=== PATIENT | female | born 1985 ===

== ENCOUNTER → 2022-12-03 13:10 | Outpatient (BNVA) | payer OTHER, SELFPAY | PROVIDERS: Visit Provider Physician Assistant Medical | DX: M25.562 Pain in left knee (principal) | CPT/HCPCS: 99203 ==

== ENCOUNTER 2022-12-07 | Outpatient (REF) | payer OTHER, SELFPAY ==
--- NOTE | ~2022-12-07 | CT_ITS ---
EXAMINATION: CT KNEE WITHOUT CONTRAST, LEFT CLINICAL INFORMATION: Pain. Crush injury. Evaluate for occult fracture. COMPARISON: None available. TECHNIQUE: Contiguous axial CT images of the left knee were obtained without contrast. Multiplanar reformats were provided and reviewed. This CT examination was performed using dose optimization techniques as appropriate, variously including the following: *Automated exposure control *Adjustment of mA and/or kV according to patient size (this includes techniques or standardized protocols for targeted exams where dose is matched to indication/reason for exam; i.e. extremities or head) *Use of iterative reconstruction technique. DOSE: 253 mGy-cm FINDINGS: No acute fracture or dislocation. Normal patellofemoral alignment. No significant joint space narrowing or marginal osteophytes. No concerning lytic or blastic osseous lesion. No evidence of avascular necrosis. No abnormal soft tissue mass or fluid collection. No significant joint effusion. The visualized muscles and tendons are grossly intact, however, evaluation is limited on CT examination. CT/CT knee LT wo IV con IMPRESSION: No acute fracture or dislocation.
== END 2022-12-07 00:01 | disposition home or self-care (01) ==
LOC: HO.XRAY
PROVIDERS: Visit Provider Physician Assistant Medical
DX: S87.02XD Crushing injury of left knee, subsequent encounter (principal)
CPT/HCPCS: 73700

== ENCOUNTER → 2022-12-07 13:33 | Outpatient (BNVA) | payer OTHER, SELFPAY | PROVIDERS: Visit Provider Physician Assistant Medical | DX: M25.562 Pain in left knee (principal) | CPT/HCPCS: 99214 ==

== ENCOUNTER → 2022-12-15 11:42 | Outpatient (BNVA) | payer OTHER, SELFPAY | PROVIDERS: Visit Provider Physician Assistant Medical | DX: M25.562 Pain in left knee (principal); M79.89 Other specified soft tissue disorders | CPT/HCPCS: 99213 ==

== ENCOUNTER → 2022-12-28 09:51 | Outpatient (BNVA) | payer OTHER, SELFPAY | PROVIDERS: PCP Internal Medicine Infectious Disease; Visit Provider Physician Assistant Medical | DX: S87.02XD Crushing injury of left knee, subsequent encounter (principal); S77.11XD Crushing injury of right thigh, subsequent encounter; X58.XXXD Exposure to other specified factors, subsequent encounter | CPT/HCPCS: 99213 ==

== ENCOUNTER 2023-01-04 10:00 | Outpatient (RCR) | payer OTHER, SELFPAY ==
--- NOTE | 2022-12-17 18:32 | MHC.PT.EP ---
[facility] [place] Office [place] Office [place] Office [address] Sandra Winn [address] [phone] F: [phone] F: [phone] F: [phone] F: [phone] Physical Therapy Plan of Care Date of Evaluation: 12/17/22 Date of Surgery: Diagnosis: LEFT thigh and knee crush injury Assessment: Patient is a 36 y.o. maltese speaking female who is referred to PT by KENDALL Pablo, with Dx of LEFT thigh and knee crush injury. Her CT scan of L knee was negative for fractures or other soft tissue injuries. Patient impairments include pain, swelling, bruising, limited ROM, weakness, antalgic gait. Patient current functional limitations are walking, bending, stair use (is going up/down on her buttocks), standing, unable to work. Patient will benefit from skilled PT to address aforementioned impairments and functional limitations to meet established goals. Frequency and Duration: The patient will be seen 2-3x/week for 4 weeks Short Term Goals: 2 weeks Patient demonstrates consistency and independence with HEP to self manage symptoms. Patient presents with increased L knee extension -10 degrees to improve ambulation with 1 crutch. 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 Patient presents with L knee flexion 90 degrees to improve sit to stand without difficulty. Treatment Plan: Modalities to reduce pain, spasms and effusion. Manual therapy to restore motion and function. Therapeutic exercise to improve strength and flexibility. Neuromuscular re-education for posture and balance. Therapeutic activities to return to functional activities of daily living. Electronically signed by: Harry Hairston, PT, DPT Please sign and return to therapist. Thank you for your referral.
--- NOTE | 2023-02-15 16:59 | MHC.PT.DC ---
[facility] [place] Office [place] Office [place] Office [address] Sandra Winn [address] [phone] F: [phone] F: [phone] F: [phone] F: [phone] Physical Therapy Discharge Report Diagnosis: LEFT thigh and knee crush injury Date of Surgery: DOI 12/02/22 Date of Evaluation: 12/17/22 Date of Discharge: 02/15/23 Treatments to Date: 5 Cancellations to Date: 2 No Shows to Date: 5 Discharge Status: Visit Non-compliance Discharge Summary: During her last PT visit she attended, Helen was ambulating with one crutch and she Reports awaiting MRI. Work Conn follow up in 2 wks per pt. She no showed to all remaining PT visits after that session. Therefore she is discharged from PT at this time for non compliance. Electronically signed by: Harry Hairston, PT, DPT Please sign and return to therapist. Thank you for your referral.
== END 2023-02-15 16:59 | disposition home or self-care (01) ==
LOC: HO.PT 10:00
PROVIDERS: PCP Internal Medicine Infectious Disease; Visit Provider Physician Assistant Medical
DX: S77.12XD Crushing injury of left thigh, subsequent encounter (principal)
CPT/HCPCS: 97014; 97110; 97116; 97140; 97161; 97530

== ENCOUNTER → 2023-01-18 10:50 | Outpatient (BNVA) | payer OTHER, SELFPAY | PROVIDERS: PCP Internal Medicine Infectious Disease; Visit Provider Physician Assistant Medical | DX: S77.12XD Crushing injury of left thigh, subsequent encounter (principal); S87.02XD Crushing injury of left knee, subsequent encounter; X58.XXXD Exposure to other specified factors, subsequent encounter | CPT/HCPCS: 99213 ==

== ENCOUNTER 2023-02-06 09:09 | Outpatient (REF) | payer OTHER, SELFPAY ==
--- NOTE | ~2023-02-06 | MR_ITS ---
EXAMINATION: MR KNEE WITHOUT CONTRAST, LEFT CLINICAL INFORMATION: Weakness pain COMPARISON: CT scan of the left knee December 2022 TECHNIQUE: MRI of the knee without contrast was performed using routine sequences on a high-field scanner. FINDINGS: MENISCI: Medial Meniscus: Intact Lateral Meniscus: Intact LIGAMENTS: Cruciate: Intact Collateral: Intact EXTENSOR MECHANISM: Intact ARTICULAR CARTILAGE/BONE: Patellofemoral Compartment: Normal Medial Compartment: Normal Lateral Compartment: Normal JOINT FLUID AND BURSAE: Normal MR/MR knee LT wo con IMPRESSION: Normal MRI of the left knee
== END 2023-02-06 09:10 | disposition home or self-care (01) ==
LOC: HO.MRI 09:09
PROVIDERS: PCP Internal Medicine Infectious Disease; Visit Provider Internal Medicine
DX: M25.562 Pain in left knee (principal); R53.1 Weakness
CPT/HCPCS: 73721

== ENCOUNTER → 2023-02-08 10:59 | Outpatient (BNVA) | payer OTHER, SELFPAY | PROVIDERS: PCP Internal Medicine Infectious Disease; Visit Provider Physician Assistant Medical | DX: S87.02XD Crushing injury of left knee, subsequent encounter (principal); S77.12XD Crushing injury of left thigh, subsequent encounter; W23.0XXD Caught, crushed, jammed, or pinched between moving objects, subsequent encounter | CPT/HCPCS: 99213 ==

== ENCOUNTER → 2023-02-11 10:46 | Outpatient (BNVA) | payer OTHER, SELFPAY | PROVIDERS: PCP Internal Medicine Infectious Disease; Visit Provider Physician Assistant Medical | DX: S87.02XD Crushing injury of left knee, subsequent encounter (principal); S77.12XD Crushing injury of left thigh, subsequent encounter; X58.XXXD Exposure to other specified factors, subsequent encounter | CPT/HCPCS: 99214 ==

== ENCOUNTER 2023-02-19 07:53 | Outpatient (REF) | payer OTHER, SELFPAY ==
--- NOTE | ~2023-02-19 | XR_ITS ---
EXAMINATION: TWO-VIEW LEFT KNEE X-RAY. STANDING FRONTAL X-RAYS OF BILATERAL KNEES CLINICAL INFORMATION: Left knee pain. COMPARISON: CT scan of left knee on 12/07/2022. TECHNIQUE: Frontal and sunrise view X-rays of left knee, frontal standing x-rays of bilateral knees FINDINGS: BONES: Bony structures are intact. There is no focal bone destruction or periosteal reaction seen. JOINTS: Alignment of joints is normal. SOFT TISSUE: Soft tissue is normal. No radiopaque foreign body or abnormal air collection is seen. XR/XR knee standing BI IMPRESSION: 1. Normal x-rays of left knee. Normal frontal x-rays of bilateral knees. 2. No fracture or dislocation or signs of osteomyelitis are found.
--- NOTE | ~2023-02-19 | XR_ITS ---
EXAMINATION: TWO-VIEW LEFT KNEE X-RAY. STANDING FRONTAL X-RAYS OF BILATERAL KNEES CLINICAL INFORMATION: Left knee pain. COMPARISON: CT scan of left knee on 12/07/2022. TECHNIQUE: Frontal and sunrise view X-rays of left knee, frontal standing x-rays of bilateral knees FINDINGS: BONES: Bony structures are intact. There is no focal bone destruction or periosteal reaction seen. JOINTS: Alignment of joints is normal. SOFT TISSUE: Soft tissue is normal. No radiopaque foreign body or abnormal air collection is seen. XR/XR knee LT 2V IMPRESSION: 1. Normal x-rays of left knee. Normal frontal x-rays of bilateral knees. 2. No fracture or dislocation or signs of osteomyelitis are found.
== END 2023-02-19 07:54 | disposition home or self-care (01) ==
LOC: HO.HOSX 07:53
PROVIDERS: Visit Provider Physician Assistant
DX: S80.02XA Contusion of left knee, initial encounter (principal); T78.40XA Allergy, unspecified, initial encounter; M25.561 Pain in right knee
CPT/HCPCS: 73560; 73565; 99202; 99212

== ENCOUNTER 2023-02-19 09:13 | Outpatient (AMB) | payer OTHER, SELFPAY ==
--- NOTE | 2023-02-19 09:16 | A.OFFVIS_ITS ---
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 Patient reports that she was cleaning 10 the rolls of a machine at work when her knee was smashed between 2 rolls. Currently her pain is at the medial aspect of knee that increases with bending and weight bearing. She has completed 10 sessions of PT with good relief. 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 She states her knee became caught between two rollers. 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 She states sitting for 8 hrs causes her knee to become stiff. . She also reports she feels like her knee will give out with ambulation or applying pressure. She had undergone 10 physical therapy sessions in the past with mild relief. 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 Review of Systems Const All systems reviewed & are unremarkable except as noted in HPI and below Physical Exam Vital Signs: BMI result Body Mass Index 28.3 Const General: cooperative, healthy appearing, comfortable, no acute distress, well developed and alert Orientation/consciousness: patient oriented x3 HEENT Head: Yes normal to inspection, Yes normocephalic and Yes atraumatic Eyes General: appearance normal, both eyes and all related structures Resp Effort & Inspection: normal respiratory effort and able to speak in complete sentences Cardio Rate: regular rate Peripheral pulses: Peripheral pulses 2+ throughout GI Palpation (GI): Soft to palpation Skin Lesions: no lesions Rashes: no rashes Neuro General: patient oriented x3 Extrem Other: Left knee: Normal to inspection. No swelling. No joint effusion. She does have a bruise along the medial aspect of patella. Full ROM without ligamentous laxity. No joint line tenderness. NVI. Results Reviewed Results Reviewed: Xrays were obtained in the office today and personally reviewed by me of the left knee are negative for acute or chronic abnormalities. Assessment & Plan Assessment & Plan (1) Contusion of left knee: Code(s): S80.02XA - Contusion of left knee, initial encounter (2) Hypersensitivity: Code(s): T78.40XA - Allergy, unspecified, initial encounter Plan She has already worked with physical therapy and felt some improvement however she continues to have limitations due to the pain. I did refer her to pain management for further evaluation and to determine if she is a candidate for a geniculate injection. She will see me back once she has had an appointment with pain management for a follow-up. She will continue current work restrictions however she should be allowed to walk every half hour so she does not develop a stiff knee. Orders: Orders XR knee LT 2V Today M25.562 - Pain in left knee XR knee standing BI Today M25.561 - Pain in right knee, M25.562 - Pain in left knee Referrals Pain Management Referral S80.02XA - Contusion of left knee, initial encounter, T78.40XA - Allergy, unspecified, initial encounter Patient Instructions: Scribed for Sujata Chance PA-C, by Michael Rankin medical insurance claims specialist, on 02/19/2023 at 9:00 AM EST. ISujata PA-C, have personally reviewed and agree with the information entered by the scribe. Coding Level of Care Code New Pt Level 3 (92358) Diagnoses Contusion of left knee S80.02XA Hypersensitivity T78.40XA
[2023-02-19 09:22] VITALS: BMI 28.3
== END 2023-02-19 09:54 | disposition home or self-care (01) ==
PROVIDERS: PCP Internal Medicine Infectious Disease; Visit Provider Physician Assistant
DX: S80.02XA Contusion of left knee, initial encounter (principal); T78.40XA Allergy, unspecified, initial encounter
CPT/HCPCS: 99203

== ENCOUNTER 2023-04-05 12:40 | Outpatient (AMB) | payer OTHER, SELFPAY ==
--- NOTE | 2023-04-05 12:47 | A.OFFVIS_ITS ---
Intake Vital Signs 04/05/23 12:55 Height 5 ft 3 in Weight 160 lb BMI 28.3 Intake Visit Reasons: OV- left knee compression injury Intake Note: Helen 37 yr old female presents today for her WC left knee contusion from DOI 12/02/22. States she is pending approval from her W/C to be seen with pain management and has been out of work since 03/24/23 due to pain and not being cleared to return to work. Allergies No Known Allergies Allergy (Verified 04/05/23 12:55) HPI OV- left knee compression injury HPI Details 37-year-old female who returns to the [facility] today with an interpreter for the deaf for a follow-up of left knee compression injury, 12/02/22. She is pending approval from her to be seen with pain management. She has been out of work since 03/24/23 due to the pain. She has not been working with physical therapy as she has been discharged. She continues to have pain along the medial aspect of the leg. 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 Review of Systems Const All systems reviewed & are unremarkable except as noted in HPI and below Physical Exam Vital Signs: BMI result Body Mass Index 28.3 Const General: cooperative, healthy appearing, comfortable, no acute distress, well developed and alert Orientation/consciousness: patient oriented x3 HEENT Head: Yes normal to inspection, Yes normocephalic and Yes atraumatic Eyes General: appearance normal, both eyes and all related structures Resp Effort & Inspection: normal respiratory effort and able to speak in complete sentences Cardio Rate: regular rate Peripheral pulses: Peripheral pulses 2+ throughout GI Palpation (GI): Soft to palpation Skin Lesions: no lesions Rashes: no rashes Neuro General: patient oriented x3 Extrem Other: Left knee: Normal to inspection. No swelling. No joint effusion. Diffuse pain along the medial aspect of the knee with hypersensitivty to touch. Full ROM without ligamentous laxity. No joint line tenderness. NVI. Assessment & Plan Assessment & Plan (1) Contusion of left knee: Code(s): S80.02XA - Contusion of left knee, initial encounter Qualifiers: Encounter type: subsequent encounter Qualified Code(s): S80.02XD - Contusion of left knee, subsequent encounter (2) Hypersensitivity: Code(s): T78.40XA - Allergy, unspecified, initial encounter Qualifiers: Encounter type: initial encounter Qualified Code(s): T78.40XA - Allergy, unspecified, initial encounter Plan I did give the patient her the contact information to contact WC to speak with them regarding pain management referral. At this time, I am unable to return her to work if she does not have appropriate treatment as mentioned in the last visit. She will see pain management for evaluation and treatment plan since she has some chronic pain from the injury which is limiting her function and it is not safe for her to return to work this time. Once she is seen by pain management, she will see me back about 4-6 weeks after for evaluation. Patient Instructions: Scribed for Sujata Chance PA-C, by Michael Rankin medical services assistant, on 04/05/2023 at 12:45 PM EST. Sujata Smith PA-C, have personally reviewed and agree with the information entered by the scribe. Coding Level of Care Code Est Pt Level 3 (70675) Diagnoses Contusion of left knee, subsequent encounter S80.02XD Encounter type: subsequent encounter Hypersensitivity, initial encounter T78.40XA Encounter type: initial encounter
[2023-04-05 12:55] VITALS: BMI 28.3
== END 2023-04-05 13:36 | disposition home or self-care (01) ==
PROVIDERS: PCP Internal Medicine Infectious Disease; Visit Provider Physician Assistant
DX: S80.02XD Contusion of left knee, subsequent encounter (principal)
CPT/HCPCS: 99213

== ENCOUNTER → 2023-04-05 12:40 | Outpatient (BNVA) | payer OTHER, SELFPAY | PROVIDERS: PCP Internal Medicine Infectious Disease; Visit Provider Physician Assistant | DX: S80.02XD Contusion of left knee, subsequent encounter (principal); T78.40XA Allergy, unspecified, initial encounter | CPT/HCPCS: 99212 ==

== ENCOUNTER 2023-07-12 12:27 | Outpatient (AMB) | payer OTHER, SELFPAY ==
--- NOTE | 2023-07-12 12:53 | A.OFFVIS_ITS ---
Vital Signs 07/12/23 13:05 Height 5 ft 3 in Weight 162 lb 2 oz BMI 28.7 BP 122/68 Blood Pressure Location Lt brachial Position Sitting Respiration 16 Pulse 98 Pulse Source Pulse Oximeter Pulse Oximetry (%) 96 Oxygen Delivery Method Room Air Intake Visit Reasons: Left knee Intake Note: Patient comes in for initial visit was referred by [facility] orthopedic. Reports pain 09/14. Allergies No Known Allergies Allergy (Verified 07/12/23 13:03) HPI Comments Details: Marilee is very pleasant 37 years old mostly Lithuanian-speaking female who presents in my office with complains on pain on medial surface of the left knee. She reported that this pain started in November of the last year. 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 She is WC patient. She reports that her pain is most severe when she is bending her leg 0 and when she is putting pressure on her foot. However laying down makes her pain slightly better but still she has a pain in the leg at night which prevents her from good night's sleep. The cold applications at physical therapy and 10s unit applications were making her pain better. She tried gabapentin twice a week and it helps her to sleep however she was told not to take it every day. She is also taking Naprosyn when her pain is very severe. She went for physical therapy after trauma and physical therapy helped your pain little bit. She never had any injections. She had x-ray and MRI of the left knee and those images are completely normal. She does not have any past medical history, her past surgical history significant for cervical cancer and . Social history she is currently on workmen's comp compensation, she denies smoking cigarettes drinking alcohol or using any recreational drugs she denies caffeinated beverages. 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 Review of Systems Const Denies chills and Denies fever(s) Eyes Denies blurry vision, Denies exophthalmos and Denies diplopia ENT Reports Normal hearing present, Denies vertigo and Denies dizziness Card Denies chest pain, Denies chest pain at rest, Denies chest pain with activity, Denies syncope, Denies rapid heart rate, Denies pedal edema and Denies edema Resp Denies chest congestion, Denies cough, Denies hemoptysis, Denies excessive phlegm production, Denies pain on inspiration and Denies pain with cough GI Denies abdominal pain, Denies belching, Denies melena and Denies bloating Denies urinary incontinence Musc Denies as per HPI, Denies back pain and Denies tingling Neuro Reports Normal hearing present, Denies Abnormal speech present, Denies confusion, Denies vertigo, Denies dizziness, Denies syncope, Denies lack of coordination, Denies Sensory deficit (Neuro) and Denies tingling Psych Denies no additional complaints, Denies confusion and Denies depression Physical Exam Vital Signs: Last Vital Signs Pulse 98 07/12/23 13:05 Resp 16 07/12/23 13:05 BP 122/68 07/12/23 13:05 Pulse Ox 96 07/12/23 13:05 Oxygen Delivery Method Room Air 07/12/23 13:05 BMI result Body Mass Index 28.7 Const General: No confusion Orientation/consciousness: No confusion HEENT Head: Yes normal to inspection, Yes normocephalic and Yes atraumatic Resp Effort & Inspection: normal respiratory effort, able to speak in complete sentences, normal respiratory pattern, no audible wheezes and no cough Cardio Jugular venous distension: no JVD GI Inspection: Yes normal to inspection Skin Lesions: no lesions Rashes: no rashes Neuro General: No confusion Cranial nerves: Yes Normal hearing present Speech: No Abnormal speech present Sensory Exam: No Sensory deficit (Neuro) Extrem Other: Left knee: On the inspection the left thigh above the knee is slightly smaller compared to the right knee. The pinkish minimal discoloration is detected at the level of the knee. Range of motion is limited due to pain. Passive range of motion although painful seem to be preserved. Allodynia and hyperesthesia on the medial surface of the left knee. Assessment & Plan Assessment & Plan (1) Complex regional pain syndrome i of left lower limb: Code(s): G90.522 - Complex regional pain syndrome I of left lower limb Category: Medical Plan I will start this patient on gabapentin 300 mg q.h.s.. I recommended her to start low impact aerobic exercise preferably swimming. I also recommended her to acquire [id number] lidocaine patch and were 12 hours off 12 hours on. I also recommended her to take Naprosyn only when it is absolutely 100% necessary. I will send her for physical therapy again the last 1 was almost 9 months ago. I explained to her nature of the home exercise program associated with physical therapy. I also will schedule her for genicular nerve block to facilitate participation in physical therapy. This will be a therapeutic genicular nerve block. Possibility to treat this patient with sympathetic blockade was briefly discussed with the patient. Orders: Orders PT Evaluation and Treatment Today G90.522 - Complex regional pain syndrome I of left lower limb Medications: New gabapentin Take at night every night, not PRN! 300 mg PO BEDTIME 30 caps 6RF 30 days Discontinued gabapentin after 2-3 days, can increase to 2 tablets before bedtime if needed. Take 8-10 hours before driving/safety sensitive duties Discontinued Reason: Doctor's Order 100 mg PO BEDTIME 30 caps 0RF gabapentin Can take 2nd tablet at night if needed, for total of 200 mg Discontinued Reason: Doctor's Order 100 mg PO BID 60 caps 0RF Patient Instructions: I here by testify that I spent 45 minutes in conversation with this patient as well as evaluating her prior records, prior diagnostic studies, and organizing this note. The embosser apprentice from [employer] [id number] was facilitating today this conversation. Coding Level of Care Code New Pt Level 4 (22724) Diagnoses Complex regional pain syndrome i of left lower limb G90.522
[2023-07-12 13:05] VITALS: BP 122/68; PULSE 98; RESP 16; O2SAT 96; BMI 28.7
== END 2023-07-12 13:34 | disposition home or self-care (01) ==
PROVIDERS: PCP Internal Medicine Infectious Disease; Visit Provider Anesthesiology
DX: G90.522 Complex regional pain syndrome I of left lower limb (principal)
CPT/HCPCS: 99204

== ENCOUNTER → 2023-07-12 12:27 | Outpatient (BNVA) | payer OTHER, SELFPAY | PROVIDERS: PCP Internal Medicine Infectious Disease; Visit Provider Anesthesiology | DX: G90.522 Complex regional pain syndrome I of left lower limb (principal) | CPT/HCPCS: 99202 ==

== ENCOUNTER 2023-08-17 06:05 | Outpatient (REF) | payer OTHER, SELFPAY ==
--- NOTE | ~2023-08-17 | FL_ITS ---
EXAMINATION: XR FLUOROSCOPY WITH IMAGES CLINICAL INFORMATION: Regional pain syndrome left lower limb. COMPARISON: None available. TECHNIQUE: Fluoroscopy Supervised By: Dr. Son yAala. Fluoroscopy Time: 0.1 minute. Cumulative Dose: 0.436 mGy. DAP: 0.28811 Gycm2. Images: 2. FINDINGS: Intraoperative fluoroscopy and spot films were performed during a procedure in the OR. 2 needles are seen overlying the left and right lateral metaphyseal regions of the femur with a single medial needle overlying the mid tibial metaphysis. Please correlate with Dr. Son Ayala's report for complete details. FL/FL guidance in treatment room IMPRESSION: Intraoperative fluoroscopy and spot films were obtained. Please see Dr. Son Ayala's report for complete details.
== END 2023-08-17 06:06 | disposition home or self-care (01) ==
LOC: CF 06:05
PROVIDERS: Visit Provider Anesthesiology
DX: G90.522 Complex regional pain syndrome I of left lower limb (principal); S80.02XD Contusion of left knee, subsequent encounter; T78.40XD Allergy, unspecified, subsequent encounter
CPT/HCPCS: 64454; J2795; J3301

== ENCOUNTER 2023-08-17 07:38 | Outpatient (AMB) | payer OTHER, SELFPAY ==
--- OUTSIDE RECORDS SUMMARY | 2023-08-17 07:40 | XMS_ITS | Continuity of Care Document ---
Author Organization [facility] Address [address] [place] [address]- Care Team Providers Care Supervisor Fertilizer Name Role Phone João Villaseñor MD Primary Care Physician Encounter [facility] Date(s): 02/15/20 - 03/20/20 [facility]/[address] [address]- Attending Physician: João Villaseñor MD Admitting Physician: João Villaseñor MD Allergies, Adverse Reactions, Alerts Substance Reaction Severity Status NKA Active Immunizations Given and Recorded Vaccine Date Status Refusal Reason influenza virus vaccine, inactivated 12/26/18 Give n Medications Biktarvy oral tablet 1 tablet, By Mouth, Daily, # 30 tablet, 5 Refills, Maintenance, 07/18/19 9:34:00 EDT, Tablet, [facility], Raltegravir and Truvada are being stopped, 1 tablet By Mouth Daily,x30 days, 158, cm, 04/04/19 15:24:00 EST, Height, 62.4, kg... Start Date: 07/18/19 Stop Date: 01/14/20 Status: Ordered Problem List Condition Effective Dates Status Health Status Inform ant Acute asthma(Confirmed) 1 Active History of pelvic inflammato ry disease (PID) 2018(Confirmed) Active Anxiety and depression(Confirmed) 2 Active Bipolar disorder(Confirmed) Active Overweight(Confirmed) Active History of DARIUSZ III, status p ost LEEP. 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 Social History Social History Type Response Smoking Status Never (less than 100 in lifetime) entered on: 04/04/19 Sex
--- OUTSIDE RECORDS SUMMARY | 2023-08-17 07:40 | XMS_ITS | Continuity of Care Document ---
Author Organization [facility] Address [address] [place] [address]- Care Team Providers Care Corporate Development Analyst Name Role Phone João Villaseñor MD Primary Care Physician [place] [facility] [place] - 08/29/22 [facility]/[place] [address]- [place] Allergies, Adverse Reactions, Alerts No Known Allergies Immunizations Given and Recorded Vaccine Date Status Refusal Reason SARS-CoV-2 (COVID-19) mRNA-1273 vaccine 02/01/21 R ecorded SARS-CoV-2 (COVID-19) mRNA-1273 vaccine 01/04/21 R ecorded influenza virus vaccine, inactivated 01/29/21 Give n influenza virus vaccine, inactivated 12/26/18 Give n Hepatitis A Adult Vaccine 06/18/20 Given Measles/Mumps/Rubella Virus Vaccine 07/20/18 Recor ded Medications diclofenac sodium 50 mg oral delayed release tablet 1 tablet = 50 mg, By Mouth, 2 times a day, PRN Pain , Moderate, with food, # 60 tablet, 1 Refills, Maintenance, 12/01/21 15:35:00 EDT, EC Tablet, [facility], Partial fill upon patient request if the prescription is for a schedule I... Start Date: 12/01/21 Status: Ordered HAND BRACE FOR CARPAL TUNNEL (R SIDE) HAND BRACE FOR CARPAL TUNNEL (R SIDE), See Instructions, # 1 each, Refills 0, Tot. Refills 0, Maintenance, DX: R CARPAL TUNNEL (G56.01) USE DIRECTED VIVIENNE: 99, 12/01/21 15:34:00 EDT, Compound Start Date: 12/01/21 Status: Ordered Odefsey oral tablet 1 tablet, By Mouth, Daily, # 30 tablet, 5 Refills, Maintenance, 04/22/22 20:05:00 EST, Tablet, [facility] - [place] is being stopped., 1 tablet By Mouth Daily, 158, cm, 12/01/21 15:02:00 EDT, Height Start Date: 04/22/22 Status: Ordered Problem List Condition Confirmation Course Effective Dates Status Health St atus Informant Bipolar disorder Confirmed Active Overweight Confirmed Active h/o DARIUSZ III Confirmed Active HIV infection Confirmed Active Non-Yi speaking patient, learning design specialist required Confirmed Active Social History Social History Type Response Smoking Status Never (less than 100 in lifetime) entered on: 06/10/21 Sex Patient Care team information Care Team Personnel Name: João Villaseñor MD Position: [facility] Physician - Primary Care Member Role: PCP Address: Address: [address] [place] [address]- Name: Yamini Guardado RN Position: S RN Member Role: Primary Care Nurse Name: Ana Burch RN Position: S RN Member Role: Primary Care Nurse Care Team Related Persons Name: SHANT BASHIR Address: home [address] [place] [address] Name: MARSHALL KAUFMAN Address: home [address] [place] [address]
--- OUTSIDE RECORDS SUMMARY | 2023-08-17 07:40 | XMS_ITS | Continuity of Care Document ---
Author Organization [facility] Address [address] [place] [address]- Care Team Providers Care Per Diem Physical Therapist Name Role Phone João Villaseñor MD Primary Care Physician Encounter [facility] [place] Date(s): 06/06/20 - 07/11/20 [facility]/[address] [address]- Attending Physician: João Villaseñor MD Admitting Physician: João Villaseñor MD Allergies, Adverse Reactions, Alerts Substance Reaction Severity Status NKA Active Immunizations Given and Recorded Vaccine Date Status Refusal Reason Hepatitis A Adult Vaccine 06/18/20 Given influenza virus vaccine, inactivated 12/26/18 Give n Medications Odefsey oral tablet 1 tablet, By Mouth, Daily, # 30 tablet, 5 Refills, Maintenance, 06/18/20 15:27:00 EDT, Tablet, [facility] [place], Biktarvy is being stopped., 1 tablet By Mouth Daily, 158, cm, 06/18/20 15:14:00 EDT, Height, 62.4, kg, 11/10/18 9:49:00 EDT,... Start Date: 06/18/20 Status: Ordered Problem List Condition Effective Dates Status Health Status Inform ant Acute asthma(Confirmed) 1 Active History of pelvic inflammato ry disease (PID) 2018(Confirmed) Active Anxiety and depression(Confirmed) 2 Active Bipolar disorder(Confirmed) Active Overweight(Confirmed) Active History of DARIUSZ III, status p ost LEEP. 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 Social History Social History Type Response Smoking Status Never (less than 100 in lifetime) entered on: 06/18/20 Sex
--- OUTSIDE RECORDS SUMMARY | 2023-08-17 07:40 | XMS_ITS | Continuity of Care Document ---
Author Organization [facility] Address [address] [place] [address]- Care Team Providers Care Medical Practice Administrator Name Role Phone João Villaseñor MD Primary Care Physician [place] [facility] [place] 02/06/19 - 04/21/19 [facility]/[address] [address]- [facility] Attending Physician: Van Quintanilla MD Allergies, Adverse Reactions, Alerts Substance Reaction Severity Status NKA Active Immunizations Given and Recorded Vaccine Date Status Refusal Reason influenza virus vaccine, inactivated 12/26/18 Give n Medications Bactrim DS 800 mg-160 mg oral tablet 1 tablet, By Mouth, Daily, for 30 days, # 30 tablet, 5 Refills, Acute 07/30/19 16:16:26 EDT, 01/31/19 16:16:26 EST, Tablet, 1 tablet By Mouth Daily,x30 days Start Date: 01/31/19 Stop Date: 07/30/19 Status: Ordered Biktarvy oral tablet 1 tablet, By Mouth, Daily, # 30 tablet, 5 Refills, Maintenance, 11/01/18 16:08:14 EDT, Tablet, Raltegravir and Truvada are being stopped, 1 tablet By Mouth Daily,x30 days Start Date: 11/01/18 Stop Date: 04/30/19 Status: Ordered gabapentin 100 mg oral capsule See Instructions, Take 1 capsule By Mouth in AM, 1 cap by3 PM and then 2 at bedtime, # 120 capsule,Refills 0, Tot. Refills 0, Maintenance, 03/21/19 15:25:00 EST, Instructions Replace Required Details, Route to Pharmacy Electronically, [facility]... Start Date: 03/21/19 Status: Ordered raNITIdine 150 mg oral tablet 1 tablet = 150 mg, By Mouth, 2 times a day, PRN Dyspepsia, # 60 tablet, 0 Refills, Maintenance, 11/10/18 10:04:36 EDT, Tablet Start Date: 11/10/18 Status: Ordered SEROquel 50 mg oral tablet 1 tablet = 50 mg, By Mouth, Daily at supper, # 60 tablet, 0 Refills, Maintenance, 01/31/19 16:17:31EST, Tablet Start Date: 01/31/19 Status: Ordered venlafaxine 75 mg oral capsule, extended release 75 mg, 1, capsule, By Mouth, Daily, # 30 capsule, Refills 5, Tot. Refills 5, Maintenance, 04/04/19 15:34:00 EST, Route to Pharmacy Electronically, [facility], dose increased, 158,cm, 04/04/19 15:24:00 EST, Height, 62.4, kg, ... Start Date: 04/04/19 Status: Ordered Problem List Condition Effective Dates Status Health Status Inform ant Acute asthma(Confirmed) 1 Active Acute pelvic inflammatory di sease (PID)(Confirmed) Active Anxiety and depression(Confirmed) 2 Active Bipolar disorder(Confirmed) Active History of varicella as a child(Confirmed) Active HIV disease(Confirmed) 2019 Active 1Pt reports she has her asthma Dx managed by PCP 2Pt reports at [facility] visit she is currently receiving mental health services. Social History Social History Type Response Smoking Status Never (less than 100 in lifetime) entered on: 04/04/19 Sex
--- OUTSIDE RECORDS SUMMARY | 2023-08-17 07:40 | XMS_ITS | Continuity of Care Document ---
Author Organization [facility] Address [address] [place] [address]- Care Team Providers Care Corncob Pipe Supervisor Name Role Phone Charleen ELLISON, João Martinez Primary Care Physician Encounter [facility] Date(s): 03/15/20 - 04/14/[address] [address]- Attending Physician: Pierce Vickers Admitting Physician: Pierce Vickers Referring Physician: AdmtrPeirce Allergies, Adverse Reactions, Alerts Substance Reaction Severity Status NKA Active Immunizations Given and Recorded Vaccine Date Status Refusal Reason influenza virus vaccine, inactivated 12/26/18 Give n Medications Biktarvy oral tablet 1 tablet, By Mouth, Daily, # 30 tablet, 5 Refills, Maintenance, 07/18/19 9:34:00 EDT, Tablet, [facility], Raltegravir and Truvada are being stopped, 1 [...] load as of Dec 2019(Confirmed) 2019 Active Non-[place] Islander speaking patient , trip motor operator 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 Social History Social History Type Response Smoking Status Never (less than 100 in lifetime) entered on: 04/04/19 Sex
--- OUTSIDE RECORDS SUMMARY | 2023-08-17 07:40 | XMS_ITS | Continuity of Care Document ---
Author Organization [facility] Address [address] [place] [address]- Care Team Providers Care Die Trouble Shooter Name Role Phone Charleen ELLISON, João Martinez Primary Care Physician Encounter [facility] [place] Date(s): 06/09/21 - 07/09/[address] [address]- Attending Physician: Pierce Vikcers Admitting Physician: Pierce Vickers Referring Physician: Pierce Vickers Allergies, Adverse Reactions, Alerts No Known Allergies Immunizations Given and Recorded Vaccine Date Status Refusal Reason SARS-CoV-2 (COVID-19) mRNA-1273 vaccine 02/01/21 R ecorded SARS-CoV-2 (COVID-19) mRNA-1273 vaccine 01/04/21 R ecorded influenza virus vaccine, inactivated 01/29/21 Give n influenza virus vaccine, inactivated 12/26/18 Give n Hepatitis A Adult Vaccine 06/18/20 Given Measles/Mumps/Rubella Virus Vaccine 07/20/18 Recor ded Medications Odefsey oral tablet 1 tablet, By Mouth, Daily, # 30 tablet, 5 Refills, Maintenance, 06/03/21 14:26:00 EDT, Tablet, [facility] [place], Qianavy is being stopped., 1 tablet By Mouth Daily, 158, cm, 05/05/21 8:25:00 EST, Height Start Date: 06/03/21 Status: Ordered Problem List Condition Effective Dates Status Health Status Inform ant Bipolar disorder(Confirmed) Active Overweight(Confirmed) Active h/o DARIUSZ III(Confirmed) Active HIV infection(Confirmed) Active Non-Micronesian speaking patient , 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
--- OUTSIDE RECORDS SUMMARY | 2023-08-17 07:40 | XMS_ITS | Continuity of Care Document ---
Author Organization [facility] Address [address] [place] [address]- Care Team Providers Care Insurance Marketing Specialist Name Role Phone João Villaseñor MD Primary Care Physician [place] [facility] [place]10/[place] - 04/20/19 [facility]/[address] [address]- [facility] Attending Physician: AdmPierce lei Admitting Physician: AdmtrPierce Referring Physician: Admtr, Ar8 Allergies, Adverse Reactions, Alerts Substance Reaction Severity [...] Replace Required Details, Route to Pharmacy Electronically, [facility]... Start Date: 03/21/19 Status: Ordered raNITIdine 150 [...] 04/04/19 15:34:00 EST, Route to Pharmacy Electronically, [facility] [place], dose increased, 158,cm, 04/04/19 15:24:00 EST, Height, [...]
--- OUTSIDE RECORDS SUMMARY | 2023-08-17 07:40 | XMS_ITS | Continuity of Care Document ---
Author Organization [facility] Address [address] [place] [address]- Care Team Providers Care Manager Solar Name Role Phone João Villaseñor MD Primary Care Physician Encounter [facility] Date(s): 08/08/21 - 09/07/[address] [address]- Attending Physician: Pierce Vickers Admitting Physician: Pierce Vickers Referring Physician: AdmtrPierce Allergies, Adverse Reactions, Alerts No Known Allergies [...] 5 Refills, Maintenance, 06/03/21 14:26:00 EDT, Tablet, [facility] [place], Qianavy is being stopped., 1 tablet By Mouth Daily, 158, cm, 05/05/21 8:25:00 EST, Height Start Date: 06/03/21 Status: Ordered Problem List Condition Effective Dates Status Health Status Inform ant Bipolar disorder(Confirmed) Active Overweight(Confirmed) Active h/o DARIUSZ III(Confirmed) Active HIV infection(Confirmed) Active Non-Turkmen 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
--- OUTSIDE RECORDS SUMMARY | 2023-08-17 07:40 | XMS_ITS | Continuity of Care Document ---
Author Organization [facility] Address [address] [place] [address]- Care Team Providers Care Air Export Operations Agent Name Role Phone João Villaseñor MD Primary Care Physician [place] [facility] [place] [id number] Date(s): 12/01/21 - 12/31/21 [facility] [address]- Attending Physician: Pierce Vickers Admitting Physician: AdmtrPierce Referring Physician: Admtr, Ar8 Allergies, Adverse Reactions, Alerts No Known Allergies [...] Refills, Maintenance, 12/01/21 15:35:00 EDT, EC Tablet, [facility], Partial fill upon patient request if the [...] 5 Refills, Maintenance, 06/03/21 14:26:00 EDT, Tablet, [facility] [place], Rasheedy is being stopped., 1 tablet By Mouth Daily, 158, cm, 05/05/21 8:25:00 EST, Height Start Date: 06/03/21 Status: Ordered Problem List Condition Confirmation Course Effective Dates Status Health St atus Informant Bipolar disorder Confirmed Active Overweight Confirmed Active h/o DARIUSZ III Confirmed Active HIV infection Confirmed Active Non-[place] Citizen speaking patient, dairy inspector 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
--- OUTSIDE RECORDS SUMMARY | 2023-08-17 07:40 | XMS_ITS | Continuity of Care Document ---
Author Organization [facility] Address [address] [place] [address]- Care Team Providers Care Cigar Maker Name Role Phone João Villaseñor MD Primary Care Physician [place] [facility] [place] 10/05/19 - 11/22/19 [facility]/[address] [address]- [facility] Attending Physician: João Villaseñor MD Admitting Physician: João Villaseñor MD Allergies, Adverse Reactions, Alerts Substance Reaction Severity Status NKA Active Immunizations Given and Recorded Vaccine Date Status Refusal Reason influenza virus vaccine, inactivated 12/26/18 Give n Medications Biktarvy oral tablet 1 tablet, By Mouth, Daily, # 30 tablet, 5 Refills, Maintenance, 07/18/19 9:34:00 EDT, Tablet, [facility] [place], Raltegravir and Truvada are being stopped, 1 tablet By Mouth Daily,x30 days, 158, cm, 04/04/19 15:24:00 EST, Height, 62.4, kg... Start Date: 07/18/19 Stop Date: 01/14/20 Status: Ordered gabapentin 100 mg oral capsule See Instructions, Take 1 capsule By Mouth in AM, 1 cap by3 PM and then 2 at bedtime, # 120 capsule,Refills 0, Tot. Refills 0, Maintenance, 03/21/19 15:25:00 EST, Instructions Replace Required Details, Route to Pharmacy Electronically, [facility]... Start Date: 03/21/19 Status: Ordered SEROquel 50 mg oral tablet 1 tablet = 50 mg, By Mouth, Daily at supper, # 60 tablet, 0 Refills, Maintenance, 01/31/19 16:17:31EST, Tablet Start Date: 01/31/19 Status: Ordered venlafaxine 75 mg oral capsule, extended release 75 mg, 1, capsule, By Mouth, Daily, # 30 capsule, Refills 5, Tot. Refills 5, Maintenance, 04/04/19 15:34:00 EST, Route to Pharmacy Electronically, [facility] [place], dose increased, 158,cm, 04/04/19 15:24:00 EST, Height, 62.4, kg, ... Start Date: 04/04/19 Status: Ordered Problem List Condition Effective Dates Status Health Status Inform ant Acute asthma(Confirmed) 1 Active Acute pelvic inflammatory di sease (PID)(Confirmed) Active Anxiety and depression(Confirmed) 2 Active Bipolar disorder(Confirmed) Active Obesity (BMI 30-39.9)(Confirmed) Active Exposure to COVID-19 virus(Confirmed) Active History [...]
--- OUTSIDE RECORDS SUMMARY | 2023-08-17 07:40 | XMS_ITS | Continuity of Care Document ---
Author Organization [facility] Address Unknown Care Team Providers Care Air Breaker Operator Name Role Phone João Villaseñor MD Primary Care Physician [place] [facility] [place] 06[place]10[place]21 - 07/10/21 [facility] Attending Physician: Pierce Vickers Admitting Physician: Pierce Vickers Referring Physician: Pierce [...] 5 Refills, Maintenance, 06/03/21 14:26:00 EDT, Tablet, [facility] [place], Qianavy is being stopped., 1 tablet By Mouth Daily, 158, cm, 05/05/21 8:25:00 EST, Height Start Date: 06/03/21 Status: Ordered Problem List Condition Effective Dates Status Health Status Inform ant Bipolar disorder(Confirmed) Active Overweight(Confirmed) Active h/o DARIUSZ III(Confirmed) Active HIV infection(Confirmed) Active Non-Eritrean speaking patient , smt technician 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
--- OUTSIDE RECORDS SUMMARY | 2023-08-17 07:40 | XMS_ITS | Continuity of Care Document ---
Author Organization [facility] Address [address] [place] [address]- Care Team Providers Care Astronomy Instructor Name Role Phone João Villaseñor MD Primary Care Physician En[place] [facility] [place] Date(s): 06/22/23 - 07/22/23 [facility] [address]- Allergies, Adverse Reactions, Alerts No Known Allergies [...] Refills, Maintenance, 12/01/21 15:35:00 EDT, EC Tablet, [facility], Partial fill upon patient request if [...] Daily, # 30 tablet, 5 Refills, Maintenance, 06/25/23 8:22:00 EDT, [facility], 30, TAKE 1 TABLET BY MOUTH EVERY DAY, 158, cm, 11/24/22 15:02:00 EDT, Height Start Date: 06/25/23 Status: Ordered venlafaxine 37.5 mg oral capsule, extended release 37.5 mg, 1, capsule, By Mouth, Daily, # 30 capsule, Refills 1, Tot. Refills 1, Maintenance, 11/24/22 15:54:00 EDT, Route to Pharmacy Electronically, [facility], Partial fill upon patient request if the prescription is for a schedul... 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 Active Social History Social History Type Response Smoking Status Never (less than 100 in lifetime) entered on: 06/10/21 Sex Patient Care team information Care Team Personnel Name: João Villaseñor MD Position: [facility] Physician - Primary Care Member Role: PCP Address: Address: [address] [place] [address]- Name: Yamini Guardado RN Position: S RN Member Role: Primary Care Nurse Name: Ana Burch RN Position: S RN Member Role: Primary Care Nurse Care Team Related Persons Name: SHANT BASHIR Address: home [address] [place] [address] Name: MARSHALL KAUFMAN Address: home [address] [place] [address]
--- OUTSIDE RECORDS SUMMARY | 2023-08-17 07:40 | XMS_ITS | Continuity of Care Document ---
Author Organization [facility] Address [address] [place] [address]- Care Team Providers Care Donations Attendant Name Role Phone Charleen ELLISON, João Martinez Primary Care Physician Encounter [facility] [place] Date(s): 08/19/20 - 09/18/20 [facility]/[address] [address]- Allergies, Adverse Reactions, Alerts Substance Reaction Severity Status NKA Active Immunizations Given and Recorded Vaccine Date Status Refusal Reason Hepatitis A Adult Vaccine 06/18/20 Given influenza virus vaccine, inactivated 12/26/18 Give n Medications Odefsey oral tablet 1 tablet, By Mouth, Daily, # 30 tablet, 5 Refills, Maintenance, 06/18/20 15:27:00 EDT, Tablet, [facility] [place], Rasheedy is being stopped., 1 tablet By Mouth Daily, 158, cm, 06/18/20 15:14:00 EDT, Height, 62.4, kg, 11/10/18 9:49:00 EDT,... Start Date: 06/18/20 Status: Ordered Problem List Condition Effective Dates Status Health Status Inform ant History of pelvic inflammato ry disease (PID) 2019(Confirmed) Active Bipolar disorder(Confirmed) Active Overweight(Confirmed) Active History of DARIUSZ III, status p ost LEEP. Last pap smear 11/06/19 negative, +HPV.(Confirmed) Active Exposure to COVID-19 virus(Confirmed) Active History of varicella as a child(Confirmed) Active HIV infection(Confirmed) Active Non-Emirati speaking patient , health and social care teacher 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
--- OUTSIDE RECORDS SUMMARY | 2023-08-17 07:40 | XMS_ITS | Continuity of Care Document ---
Author Organization [facility] Address [address] [place] [address]- Care Team Providers Care Auto Painter Helper Name Role Phone Charleen ELLISON, João Martinez Primary Care Physician Encounter [facility] [place] Date(s): 05/05/21 - 06/04/[address] [address] Allergies, Adverse Reactions, Alerts No Known Allergies [...] 5 Refills, Maintenance, 06/03/21 14:26:00 EDT, Tablet, [facility] [place], Rasheedy is being stopped., 1 tablet By Mouth Daily, 158, cm, 05/05/21 8:25:00 EST, Height Start Date: 06/03/21 Status: Ordered Problem List Condition Effective Dates Status Health Status Inform ant Bipolar disorder(Confirmed) Active Overweight(Confirmed) Active h/o DARIUSZ III(Confirmed) Active HIV infection(Confirmed) Active Non-Citizen Of [place] speaking patient , hearing care practitioner 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
--- OUTSIDE RECORDS SUMMARY | 2023-08-17 07:40 | XMS_ITS | Continuity of Care Document ---
Author Organization [facility] Address [address] [place] [address]- Care Team Providers Care C Developer Name Role Phone João Villaseñor MD Primary Care Physician Encounter [facility] [place] Date(s): 10/07/20 - 11/22/[address] [address] Attending Physician: João Villaseñor MD Admitting Physician: João Villaseñor MD Referring Physician: João Villaseñor MD Allergies, Adverse Reactions, Alerts Substance Reaction Severity Status NKA Active Immunizations Given and Recorded Vaccine Date Status Refusal Reason Hepatitis A Adult Vaccine 06/18/20 Given influenza virus vaccine, inactivated 12/26/18 Give n Measles/Mumps/Rubella Virus Vaccine 07/20/18 Recor ded Medications Odefsey oral tablet 1 tablet, By Mouth, Daily, # 30 tablet, 5 Refills, Maintenance, 06/18/20 15:27:00 EDT, Tablet, 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
--- OUTSIDE RECORDS SUMMARY | 2023-08-17 07:40 | XMS_ITS | Continuity of Care Document ---
Author Organization [facility] Address [address] [place] [address]- Care Team Providers Care Olive Grader Name Role Phone João Villaseñor MD Primary Care Physician Encounter [facility] [place] Date(s): 06/18/20 - 07/18/20 [facility]/[address] [address]- Attending Physician: Pierce Vickers Admitting Physician: Pierce Vickers Referring Physician: AdmtrPierce Allergies, Adverse Reactions, Alerts Substance Reaction Severity Status NKA Active Immunizations Given and Recorded Vaccine Date Status Refusal Reason Hepatitis A Adult Vaccine 06/18/20 Given influenza virus vaccine, inactivated 12/26/18 Give n Medications Odefsey oral tablet 1 tablet, By Mouth, Daily, # 30 tablet, 5 Refills, Maintenance, 06/18/20 15:27:00 EDT, Tablet, [facility] [place], Biktarvy is being stopped., 1 tablet By Mouth Daily, 158, cm, 06/18/20 15:14:00 EDT, Height, 62.4, kg, 11/10/18 9:49:00 EDT,... Start Date: 06/18/20 Status: Ordered Problem List Condition Effective Dates Status Health Status Inform ant Acute asthma(Confirmed) 1 Active History of pelvic inflammato ry disease (PID) 2019(Confirmed) Active Anxiety and depression(Confirmed) 2 Active Bipolar disorder(Confirmed) Active Overweight(Confirmed) Active History of DARIUSZ III, status p ost LEEP. 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 Social History Social History Type Response Smoking Status Never (less than 100 in lifetime) entered on: 06/18/20 Sex
--- OUTSIDE RECORDS SUMMARY | 2023-08-17 07:40 | XMS_ITS | Continuity of Care Document ---
Author Organization [facility] Address [address] [place] [address]- Care Team Providers Care Account Resolution Expert Name Role Phone João Villaseñor MD Primary Care Physician Encounter [facility] [place] Date(s): 09/09/21 - 11/06/21 [facility]/[place] [address]- Attending Physician: João Villaseñor MD Admitting Physician: João Villaseñor MD Allergies, Adverse Reactions, Alerts No Known Allergies [...] 5 Refills, Maintenance, 06/03/21 14:26:00 EDT, Tablet, [facility] [place], Biktarvy is being stopped., 1 tablet By Mouth Daily, 158, cm, 05/05/21 8:25:00 EST, Height Start Date: 06/03/21 Status: Ordered Problem List Condition Effective Dates Status Health Status Inform ant Bipolar disorder(Confirmed) Active Overweight(Confirmed) Active h/o DARIUSZ III(Confirmed) Active HIV infection(Confirmed) Active Non-Bolivian speaking patient , hourly sign language interpreter 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 Care Team Personnel Name: João Villaseñor MD Address: [address] [place] [address]
--- OUTSIDE RECORDS SUMMARY | 2023-08-17 07:40 | XMS_ITS | Continuity of Care Document ---
Author Organization [facility] Address [address] [place] [address]- Care Team Providers Care Tool Builder Name Role Phone João Villaseñor MD Primary Care Physician Encounter [facility] [place] Date(s): 03/31/22 - 04/30/22 [facility] [address]- [place] Allergies, Adverse Reactions, Alerts No Known [...] Refills, Maintenance, 12/01/21 15:35:00 EDT, EC Tablet, [facility], Partial fill upon patient request if [...] 5 Refills, Maintenance, 04/22/22 20:05:00 EST, Tablet, [facility] [place] is being stopped., 1 tablet By Mouth Daily, 158, cm, 12/01/21 15:02:00 EDT, Height Start Date: 04/22/22 Status: Ordered Problem List Condition Confirmation Course Effective Dates Status Health St [facility] Informant Bipolar disorder Confirmed Active Overweight Confirmed Active h/o DARIUSZ III Confirmed Active HIV infection Confirmed Active Non-Kazakh speaking patient, soup person required Confirmed Active Social History Social History Type Response Smoking Status Never (less than 100 in lifetime) entered on: 06/10/21 Sex Patient Care team information Care Team Personnel Name: João Villaseñor MD Position: [facility] Primary Care Physician Member Role: PCP Address: Address: [address] [place] [address]- Name: Yamini Guardado RN Position: S RN Member Role: Primary Care Nurse Name: Ana Burch RN Position: S RN Member Role: Primary Care Nurse Care Team Related Persons Name: SHANT BASHIR Address: home [address] [place] [address] Name: MARSHALL KAUFMAN Address: home [address] [place] [address]
--- OUTSIDE RECORDS SUMMARY | 2023-08-17 07:40 | XMS_ITS | Continuity of Care Document ---
Author Organization [facility] Address [address] [place] [address]- Care Team Providers Care Granite Sandblaster Apprentice Name Role Phone Charleen ELLISON, João Martinez Primary Care Physician Encounter [facility] Date(s): 09/18/19 - 10/18/[address] [address]- [facility] Allergies, Adverse Reactions, Alerts Substance Reaction Severity Status NKA Active Immunizations Given and Recorded Vaccine Date Status Refusal Reason influenza virus vaccine, inactivated 12/26/18 Give n Medications Biktarvy oral tablet 1 tablet, By Mouth, Daily, # 30 tablet, 5 Refills, Maintenance, 07/18/19 9:34:00 EDT, Tablet, [facility] [place], Raltegravir and Truvada are being stopped, 1 [...] Replace Required Details, Route to Pharmacy Electronically, [facility]... Start Date: 03/21/19 Status: Ordered [...] 04/04/19 15:34:00 EST, Route to Pharmacy Electronically, [facility] [place], dose increased, 158,cm, 04/04/19 15:24:00 EST, Height, [...]
--- OUTSIDE RECORDS SUMMARY | 2023-08-17 07:40 | XMS_ITS | Continuity of Care Document ---
Author Organization [facility] Address [address] [place] [address]- Care Team Providers Care Flagstone Layer Name Role Phone Charleen ELLISON, João Martinez Primary Care Physician [place] [id number] Date(s): 10/07/21 - 11/06/21 [facility] [address]- Attending Physician: Pierce Vickers Admitting Physician: AdmPierce lei Referring Physician: Admtr, Ar8 Allergies, Adverse Reactions, [...] 5 Refills, Maintenance, 06/03/21 14:26:00 EDT, Tablet, [facility] [place], Biktarvy is being stopped., 1 tablet By Mouth Daily, 158, cm, 05/05/21 8:25:00 EST, Height Start Date: 06/03/21 Status: Ordered Problem List Condition Effective Dates Status Health Status Inform ant Bipolar disorder(Confirmed) Active Overweight(Confirmed) Active h/o DARIUSZ III(Confirmed) Active HIV infection(Confirmed) Active Non-Papua New Guinean speaking patient , 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
--- OUTSIDE RECORDS SUMMARY | 2023-08-17 07:40 | XMS_ITS | Continuity of Care Document ---
Author Organization [facility] Address [address] [place] [address]- Care Team Providers Care Planisher Name Role Phone João Villaseñor MD Primary Care Physician [place] [facility] [place] [id number] Date(s): 12/29/22 - 01/28/23 [facility] [address]- Attending Physician: Pierce Vickers Admitting Physician: AdmtrPierce Referring Physician: Admtr, ArJohny Allergies, Adverse Reactions, Alerts No Known Allergies [...] Refills, Maintenance, 12/01/21 15:35:00 EDT, EC Tablet, [facility], Partial fill upon patient request if the [...] 5 Refills, Maintenance, 04/22/22 20:05:00 EST, Tablet, [facility], Biktarvy is being stopped., 1 tablet By Mouth Daily, 158, cm, 12/01/21 15:02:00 EDT, Height Start Date: 04/22/22 Status: Ordered venlafaxine 37.5 mg oral capsule, extended release 37.5 mg, 1, capsule, By Mouth, Daily, # 30 capsule, Refills 1, Tot. Refills 1, Maintenance, 11/24/22 15:54:00 EDT, Route to Pharmacy Electronically, [facility], Partial fill upon patient request if the prescription is for a schedul... 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 Physician - Primary Care Member Role: PCP Address: Address: [address] [place] [address]- Name: Yamini Guardado RN Position: S RN Member Role: Primary Care Nurse Name: Ana Burch RN Position: S RN Member Role: Primary Care Nurse Care Team Related Persons Name: SHANT BASHIR Address: home [address] [place] [address] Name: MARSHALL KAUFMAN Address: home [address] [place] [address]
--- OUTSIDE RECORDS SUMMARY | 2023-08-17 07:40 | XMS_ITS | Continuity of Care Document ---
Author Organization [facility] Address Unknown Care Team Providers Care Furniture Technician Name Role Phone João Villaseñor MD Primary Care Physician Encounter [facility] [place] ACCT R [id number] Date(s): 09/09/21 - 10/16/21 [facility] Attending Physician: João Villaseñor MD Admitting Physician: [...] 5 Refills, Maintenance, 06/03/21 14:26:00 EDT, Tablet, [facility] [place], Trudiarvy is being stopped., 1 tablet By Mouth Daily, 158, cm, 05/05/21 8:25:00 EST, Height Start Date: 06/03/21 Status: Ordered Problem List Condition Effective Dates Status Health Status Inform ant Bipolar disorder(Confirmed) Active Overweight(Confirmed) Active h/o DARIUSZ III(Confirmed) Active HIV infection(Confirmed) Active Non-Malian speaking patient , 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
--- OUTSIDE RECORDS SUMMARY | 2023-08-17 07:40 | XMS_ITS | Continuity of Care Document ---
Author Organization [facility] Address [address] [place] [address]- Care Team Providers Care Animal Services Officer Name Role Phone João Villaseñor MD Primary Care Physician [place] [facility] [place](s[place] 02/22/19 - 03/25/19 [facility] [place] [address]- [facility] Attending Physician: Raciel Olsen MD Admitting Physician: Raciel Olsen MD Allergies, Adverse Reactions, Alerts Substance Reaction [...] [facility]... Start Date: 03/21/19 Status: Ordered oxyCODONE 5 mg oral tablet 5 mg, 1, tablet, By Mouth, Every 6 hours, PRN, for 7 days, # 28 tablet, Refills 0, Tot. Refills 0, Acute 03/28/19 15:25:00 EST, as needed for pain, 03/21/19 15:25:00 EST, Route to Pharmacy Electronically, [facility], Partial fill u... Start Date: 03/21/19 Stop Date: 03/28/19 Status: Ordered raNITIdine 150 mg oral tablet [...] 16:17:31EST, Tablet Start Date: 01/31/19 Status: Ordered Valtrex 1 gm oral tablet 1 tablet = 1 Gm, By Mouth, 3 times a day, for 7 days, # 21 tablet, 0 Refills, Acute 03/28/19 15:24:00 EST, 03/21/19 15:24:00 EST, Tablet, [facility], 158, cm, 01/31/19 15:36:00 EST, Height, 62.4, kg, 11/10/18 9:49:00 EDT, Dry Weight Start Date: 03/21/19 Stop Date: 03/28/19 Status: Ordered venlafaxine 37.5 mg oral capsule, extended release 1 capsule = 37.5 mg, By Mouth, Daily, # 30 capsule, 5 Refills, Maintenance, 01/31/19 16:17:56 EST, ER Capsule Start Date: 01/31/19 Stop Date: 07/30/19 Status: Ordered Problem List Condition Effective Dates [...] (less than 100 in lifetime) entered on: 11/01/18 Sex
--- OUTSIDE RECORDS SUMMARY | 2023-08-17 07:40 | XMS_ITS | Continuity of Care Document ---
Author Organization [facility] Address [address] [place] [address]- Care Team Providers Care Cmm Inspector Name Role Phone João Villaseñor MD Primary Care Physician En[place] [facility] [place] Date(s): 03/06/19 - 05/10/19 [facility]/[address] [address]- [facility] Attending Physician: João Villaseñor MD Admitting Physician: Jãoo Villaseñor MD Allergies, Adverse Reactions, Alerts Substance [...] 04/04/19 15:34:00 EST, Route to Pharmacy Electronically, [facility], dose increased, 158,cm, 04/04/19 15:24:00 EST, [...]
--- OUTSIDE RECORDS SUMMARY | 2023-08-17 07:40 | XMS_ITS | Continuity of Care Document ---
Author Organization [facility] Address [address] [place] [address]- Care Team Providers Care Engineering And Scientific Programmer Name Role Phone João Villaseñor MD Primary Care Physician Encounter [facility] [place] Date(s): 09/17/20 - 10/17/20 [facility] [address] [place] [address]- Attending Physician: Pierce Vickers Admitting Physician: AdmPierce lei Referring Physician: AdmtrPierce Allergies, Adverse Reactions, Alerts Substance Reaction Severity Status NKA Active Immunizations Given and Recorded Vaccine Date Status Refusal Reason Hepatitis A Adult Vaccine 06/18/20 Given influenza virus vaccine, inactivated 12/26/18 Give n Measles/Mumps/Rubella Virus Vaccine 07/20/18 Recor ded Medications Odefsey oral tablet 1 tablet, By Mouth, Daily, # 30 tablet, 5 Refills, Maintenance, 06/18/20 15:27:00 EDT, Tablet, [facility] [place], Biktarvy is being stopped., 1 tablet By [...] as a child(Confirmed) Active HIV infection(Confirmed) Active Non-Surinamese speaking patient , 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
--- OUTSIDE RECORDS SUMMARY | 2023-08-17 07:40 | XMS_ITS | Continuity of Care Document ---
Author Organization [facility] Address Unknown Care Team Providers Care Boiler Installer Name Role Phone Charleen ELLISON, João Martinez Primary Care Physician Encounter [facility] ACCT R [id number] Date(s): 01/06/21 - 02/05/21 [facility] Attending Physician: Pierce Vickers Admitting Physician: Pierce Vickers Referring Physician: Pierce Vickers Allergies, Adverse Reactions, Alerts Substance Reaction Severity Status NKA Active Immunizations Given and Recorded Vaccine Date Status Refusal Reason influenza virus vaccine, inactivated 01/29/21 Give n influenza virus vaccine, inactivated 12/26/18 Give n Hepatitis A Adult Vaccine 06/18/20 Given Measles/Mumps/Rubella Virus Vaccine 07/20/18 Recor ded Medications Odefsey oral tablet 1 tablet, By Mouth, Daily, # 30 tablet, 5 Refills, Maintenance, 06/18/20 15:27:00 EDT, Tablet, [facility] [place], Qianavy is being stopped., 1 tablet By [...] as a child(Confirmed) Active HIV infection(Confirmed) Active Non-Mongolian speaking patient , head animal keeper 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
--- OUTSIDE RECORDS SUMMARY | 2023-08-17 07:40 | XMS_ITS | Continuity of Care Document ---
Author Organization [facility] Address [address] [place] [address]- Care Team Providers Care Customer Care Associate Name Role Phone João Villaseñor MD Primary Care Physician Encounter [facility] [place] Date(s): 10/23/19 - 11/22/19 [facility]/[address] [address]- [facility] Attending Physician: Pierce Vickers Admitting Physician: AdmtrPierce Referring Physician: Admtr, Pierce Allergies, Adverse Reactions, Alerts Substance Reaction Severity Status NKA Active Immunizations Given and Recorded Vaccine Date Status Refusal Reason influenza virus vaccine, inactivated 12/26/18 Give n Medications Biktarvy oral tablet 1 tablet, By Mouth, Daily, # 30 tablet, 5 Refills, Maintenance, 07/18/19 9:34:00 EDT, Tablet, [facility] [place], Raltegravir and Truvada are being stopped, 1 [...] Replace Required Details, Route to Pharmacy Electronically, [facility]... Start Date: 03/21/19 Status: Ordered SEROquel [...] 04/04/19 15:34:00 EST, Route to Pharmacy Electronically, [facility], dose increased, 158,cm, 04/04/19 15:24:00 EST, Height, 62.4, kg, 11/10/... Start Date: 04/04/19 Status: Ordered Problem List [...]
--- OUTSIDE RECORDS SUMMARY | 2023-08-17 07:40 | XMS_ITS | Continuity of Care Document ---
Author Organization [facility] Address Unknown Care Team Providers Care Senior Validation Engineer Name Role Phone João Villaseñor MD Primary Care Physician [id number] Date(s[facility] 12/23/20 - 02/05/21 [facility] Attending Physician: João Villaseñor MD Admitting [...] 5 Refills, Maintenance, 06/18/20 15:27:00 EDT, Tablet, [facility] [place], Trudiarvy is being stopped., 1 tablet By Mouth Daily, 158, cm, 06/18/20 15:14:00 EDT, Height, 62.4, kg, 11/10/18 9:49:00 EDT,... Start Date: 06/18/20 Status: Ordered Problem List Condition Effective Dates Status Health Status Inform ant History of pelvic inflammato ry disease (PID) 2018(Confirmed) Active Bipolar disorder(Confirmed) Active Overweight(Confirmed) Active History of DARIUSZ III, status p ost LEEP. 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
--- OUTSIDE RECORDS SUMMARY | 2023-08-17 07:41 | XMS_ITS | Continuity of Care Document ---
Author Organization [facility] Address [address] [place] [address]- Care Team Providers Care Rivet Catcher Name Role Phone João Villaseñor MD Primary Care Physician [place] [facility] [place] Date(s): 01/30/19 - 03/01/19 [facility]/[address] [address]- [place] Attending Physician: João Villaseñor MD Admitting Physician: [...] Date: 11/01/18 Stop Date: 04/30/19 Status: Ordered raNITIdine 150 mg oral tablet [...] Tablet Start Date: 01/31/19 Status: Ordered venlafaxine 37.5 mg oral capsule, [...]
--- OUTSIDE RECORDS SUMMARY | 2023-08-17 07:41 | XMS_ITS | Continuity of Care Document ---
Author Organization [facility] Address [address] [place] [address]- Care Team Providers Care Replenishment Merchandising Associate Name Role Phone João Villaseñor MD Primary Care Physician En[facility] [place] ACCT R [id number] Date(s): 11/25/22 - 01/28/23 [facility] [address]- Attending Physician: João Villaseñor MD Admitting Physician: [...] Refills, Maintenance, 12/01/21 15:35:00 EDT, EC Tablet, [facility], Partial fill upon patient request if [...] 5 Refills, Maintenance, 04/22/22 20:05:00 EST, Tablet, [facility], Biktarvy is being stopped., 1 tablet By Mouth Daily, 158, cm, 12/01/21 15:02:00 EDT, Height Start Date: 04/22/22 Status: Ordered venlafaxine 37.5 mg oral capsule, extended release 37.5 mg, 1, capsule, By Mouth, Daily, # 30 capsule, Refills 1, Tot. Refills 1, Maintenance, 11/24/22 15:54:00 EDT, Route to Pharmacy Electronically, [facility], Partial fill upon patient request if the prescription is for a schedul... Start Date: 11/24/22 Status: Ordered Problem List Condition Confirmation Course Effective Dates Status Health St [facility] Informant Bipolar disorder Confirmed Active Overweight Confirmed Active h/o DARIUSZ III Confirmed Active HIV infection Confirmed Active Non-Syriac speaking patient, brush finisher required Confirmed Active Social History Social History Type Response Smoking Status Never (less than 100 in lifetime) entered on: 06/10/21 Sex Patient Care team information Care Team Personnel Name: João Villaseñor MD Position: [facility] Physician - Primary Care Member Role: PCP Address: Address: [address] [place] [id number]- Name: Yamini Guardado RN Position: S RN Member Role: Primary Care Nurse Name: Ana Burch RN Position: S RN Member Role: Primary Care Nurse Care Team Related Persons Name: SHANT BASHIR Address: home [address] [place] [address] Name: MARSHALL KAUFMAN Address: home [address] [place] [address]
--- OUTSIDE RECORDS SUMMARY | 2023-08-17 07:41 | XMS_ITS | Continuity of Care Document ---
Author Organization [facility] Address [address] [place] [address]- Care Team Providers Care Cytogenetic Technician Name Role Phone João Villaseñor MD Primary Care Physician [place] [facility] [place] [facility] [address] [place] [address]- Attending Physician: Pierce Vickers Admitting Physician: Pierce Vickers Referring Physician: AdmtrPierce Allergies, Adverse Reactions, Alerts Substance Reaction Severity Status NKA Active Immunizations Given and Recorded Vaccine Date Status Refusal Reason influenza virus vaccine, inactivated 12/26/18 Give n Medications Biktarvy oral tablet 1 tablet, By Mouth, Daily, # 30 tablet, 5 Refills, Maintenance, 07/18/19 9:34:00 EDT, Tablet, [facility] [place], Raltegravir and Truvada are being stopped, 1 [...] load as of Dec 2019(Confirmed) 2019 Active Non-Serbian speaking patient , pillow agent 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 Social History Social History Type Response Smoking Status Never (less than 100 in lifetime) entered on: 04/04/19 Sex
--- OUTSIDE RECORDS SUMMARY | 2023-08-17 07:41 | XMS_ITS | Continuity of Care Document ---
Author Organization [facility] Address Unknown Care Team Providers Care Mechanism Assembler Name Role Phone Charleen ELLISON, João Martinez Primary Care Physician Encounter [facility] [place] Date(s): 02/03/21 - 03/05/21 [facility] Allergies, Adverse Reactions, Alerts Substance Reaction Severity [...] 5 Refills, Maintenance, 06/18/20 15:27:00 EDT, Tablet, [facility] [place], Biktarvy is being stopped., 1 tablet By [...] as a child(Confirmed) Active HIV infection(Confirmed) Active Non-Dutch speaking patient , competency evaluated nurse aide 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
--- OUTSIDE RECORDS SUMMARY | 2023-08-17 07:41 | XMS_ITS | Continuity of Care Document ---
Author Organization [facility] Address [address] [place] [id number]- Care Team Providers Care Quality Assurance Advisor Name Role Phone Charleen ELLISON, João Martinez Primary Care Physician Encounter [facility] Date(s): 01/29/21 - 02/28/[address] [address]- Attending Physician: Pierce Vickers Admitting Physician: Pierce [...] 5 Refills, Maintenance, 06/18/20 15:27:00 EDT, Tablet, [facility] [place], Qianavy is being stopped., 1 tablet By [...] as a child(Confirmed) Active HIV infection(Confirmed) Active Non-Kyrgyz speaking patient , automotive parts interpreter 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
--- OUTSIDE RECORDS SUMMARY | 2023-08-17 07:41 | XMS_ITS | Continuity of Care Document ---
Author Organization [facility] Address [address] [place] [address]- Care Team Providers Care Program Director/Music Director Name Role Phone João Villaseñor MD Primary Care Physician Encounter [facility] Date(s): 02/23/19 - 03/05/19 [facility]/[address] [address]- [facility] Attending Physician: AdmPierce lei Admitting Physician: AdmtrPierce [...]
--- OUTSIDE RECORDS SUMMARY | 2023-08-17 07:41 | XMS_ITS | Continuity of Care Document ---
Author Organization [facility] Address Unknown Care Team Providers Care Shank Maker Name Role Phone João Villaseñor MD Primary Care Physician En[place] [facility] [place] Date(s): 09/05/21 - 10/05/21 [facility] Allergies, Adverse Reactions, Alerts No Known Allergies [...] 5 Refills, Maintenance, 06/03/21 14:26:00 EDT, Tablet, [facility] [place], Rasheedy is being stopped., 1 tablet By Mouth Daily, 158, cm, 05/05/21 8:25:00 EST, Height Start Date: 06/03/21 Status: Ordered Problem List Condition Effective Dates Status Health Status Inform ant Bipolar disorder(Confirmed) Active Overweight(Confirmed) Active h/o DARIUSZ III(Confirmed) Active HIV infection(Confirmed) Active Non-Croatian speaking patient , 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
[2023-08-17 07:47] VITALS: BP 128/70; PULSE 110; RESP 18; O2SAT 96; BMI 28.7
--- NOTE | 2023-08-17 07:47 | A.OFFVIS_ITS ---
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 Physical Exam Vital Signs: Last Vital Signs Pulse 110 H 08/17/23 07:47 Resp 18 08/17/23 07:47 BP 128/70 08/17/23 07:47 Pulse Ox 96 08/17/23 07:47 Oxygen Delivery Method Room Air 08/17/23 07:47 BMI result Body Mass Index 28.7 Assessment & Plan Assessment & Plan (1) Complex regional pain syndrome i of left lower limb: Code(s): G90.522 - Complex regional pain syndrome I of left lower limb Category: Medical (2) Contusion of left knee: Code(s): S80.02XA - Contusion of left knee, initial encounter Category: Medical Qualifiers: Encounter type: subsequent encounter Qualified Code(s): S80.02XD - Contusion of left knee, subsequent encounter (3) Hypersensitivity: Code(s): T78.40XA - Allergy, unspecified, initial encounter Category: Medical Qualifiers: Encounter type: initial encounter Qualified Code(s): T78.40XA - Allergy, unspecified, initial encounter Plan Left diagnostic and therapeutic genicular nerve block. Informed consent was explained to the patient. All questions were explained and answered. The patient was taken inside the operating room. The patient was positioned supine on operating table with her right leg elevated on a gel bin. Time-out was performed delineating correct site, side, the nature of the procedure, patient's allergy, preoperative antibiotic if needed. All operating room staff was participating in OR time-out procedure. C-arm was brought over the operating field and picture of the right knee was demonstrated on the screen. Anterolateral and anteromedial surfaces of the knee as well as lower leg and the lower thigh were prepped with chloroprep and draped with utility towels. The point of interest were delineated for: FOR: superior lateral genicular nerve (branch of lateral femoral cutaneous nerve) as the connection of the metaphysis of the left femur with corresponding diaphysis on the lateral silhouette of the femur distal bone, For superior medial genicular nerve (suprapatellar saphenous nerve) the point of interest was delineated is the connection of metaphysis of left femur with corresponding diaphysis on the medial silhouette on the femoral distal bone. For inferior medial genicular nerve (infrapatellar saphenous nerve) the point of interest was delineated as connection of metaphysis of the proximal tibia on the medial side with corresponding diaphysis of the same bone. The projections of the points of interest on anterior surface of the left knee was injected with small amount of lidocaine 2% 1-to 2 ml. After that to needles 22 gauge 3-1/2 inch long were driven to were the point of interest in tunnel vision fashion. When the needle gently contacted the bones the C arm view was turned lateral , care was taken to superimpose condyles of the knee. With co ndyles superimpsed the needles were adjusted the way the tips of the needle positioned at the middle of the shaft of the bone. After that injection of ropivacaine o.5% 2. mls mixed with Kenalog was performed at each needle location. Total dose of Kenalog was 40 mg, upon completion of the procedure the needles were removed and bandaids were applied. the patient barely tolerated the procedure . Coding Level of Care Code Procedure Only Diagnoses Complex regional pain syndrome i of left lower limb G90.522 Contusion of left knee, subsequent encounter S80.02XD Encounter type: subsequent encounter Hypersensitivity, initial encounter T78.40XA Encounter type: initial encounter
[2023-08-17 09:29] VITALS: BP 134/82; PULSE 99; RESP 99; O2SAT 99
== END 2023-08-17 09:07 | disposition home or self-care (01) ==
LOC: HO.PMCPRC 07:38
PROVIDERS: PCP Internal Medicine Infectious Disease; Visit Provider Anesthesiology
DX: G90.522 Complex regional pain syndrome I of left lower limb (principal); S80.02XD Contusion of left knee, subsequent encounter; T78.40XA Allergy, unspecified, initial encounter
CPT/HCPCS: 64454

== ENCOUNTER 2023-09-06 14:00 | Outpatient (RCR) | payer OTHER, SELFPAY ==
--- NOTE | 2023-08-10 13:10 | MHC.PT.EP ---
[facility] [place] Office [place] Office [place] Office [address] Sandra Winn [address] [phone] F: [phone] F: [phone] F: [phone] F: [phone] Physical Therapy Plan of Care Date of Evaluation: 08/09/23 Date of Surgery: Diagnosis: CRPS L knee Assessment: Pt is a 37yo female returning to PT for intractable L knee pain, diagnosed with CRPS s/p work injury. PT indicated to address impairments including knee ROM, strength, abnormal gait and transfers. PT will also complete treatments for desensitization and prescribe HEP. Pt in agreement to participate, although exercise is limited at times due to extreme pain. Frequency and Duration: The patient will be seen 2x/week, x 4 weeks Short Term Goals: 1. Improve knee flexion by 20 degrees actively in 2 weeks. 2. In 2 weeks, patient will be able to complete 1/4 squat without weight shift to the R. Alf Goals: 1. In 4 weeks, improve LEFS score by >=10 points indicating reduced pain and improved functional mobility. 2. In 4 weeks, patient will be able to ascend and descend 4 inch step with normal knee flexion needed. 3. In 4 weeks patient will report pain <5/10 with patellar mobs, with 50% normal gliding noted of patella all planes. Treatment Plan: Modalities to reduce pain, spasms and effusion. Manual therapy to restore motion and function. Therapeutic exercise to improve strength and flexibility. Neuromuscular re-education for posture and balance. Therapeutic activities to return to functional activities of daily living. Electronically signed by: Katy Cuenca PT, DPT Please sign and return to therapist. Thank you for your referral.
--- NOTE | 2023-10-28 10:52 | MHC.PT.DC ---
[facility] Office [place] [facility] [place] Office [address] Sandra Winn [address] [phone] F: [phone] F: [phone] F: [phone] F: [phone] Physical Therapy Discharge Report Diagnosis: CRPS L knee Date of Surgery: Date of Evaluation: 08/09/23 Date of Discharge: 10/28/23 Treatments to Date: 6 Cancellations to Date: 0 No Shows to Date: 2 Discharge Status: Patient Elected to Stop Visit Non-compliance Discharge Summary: Helen ceased attending PT on her own accord. She had difficulty tolerating PT due to pain, even after nerve block by pain management clinic. Her last PT session on 09/06/23 the assessment reads, Today's session incorporated mirror therapy for pt's LE in attempts to decrease knee pain, pt had no pain w/ any mirror exercises though reported a little quad fatigue and had to be cued to move L LE through full ROM. Pt was also introduced to various fabrics which were rubbed on the knee to desensitize, pt expressed mild discomfort w/ some tougher fabrics (velcro, etc.). Pt was instructed to performed similar desensitization at home. Pt was also encouraged to bear more weight on L LE w/ tandem stance, lateral lucho step overs, and calf raises, pt did these slowly but was able to complete. Session exercises ended w/ bike to encourage knee ROM. Future sessions will include mirror therapy, desensitization, and ROM to encourage pt to move through a tolerable pain range. She is discharged from PT at this time for non-compliance, can be re-referred when appropriate and able to participate in PT interventions. Electronically signed by: Harry Hairston, PT, DPT Please sign and return to therapist. Thank you for your referral.
== END 2023-10-28 10:53 | disposition home or self-care (01) ==
LOC: HO.PT 14:00
PROVIDERS: PCP Internal Medicine Infectious Disease; Visit Provider Anesthesiology
DX: G90.522 Complex regional pain syndrome I of left lower limb (principal)
CPT/HCPCS: 97014; 97110; 97112; 97140; 97162; 97530

== ENCOUNTER 2023-09-13 12:43 | Outpatient (AMB) | payer OTHER, SELFPAY ==
--- NOTE | 2023-09-13 12:55 | MHC.OFFVIS ---
Vital Signs 09/13/23 13:13 Height 5 ft 3 in Weight 162 lb 4 oz BMI 28.7 BP 120/68 Blood Pressure Location Lt brachial Position Sitting Respiration 16 Pulse 91 Pulse Source Pulse Oximeter Pulse Oximetry (%) 98 Oxygen Delivery Method Room Air Intake Visit Reasons: LEFT THERAPEUTIC GENICULAR NERVE BLOCK Intake Note: Patient comes in for post-op. Reports pain 8/10. Allergies No Known Allergies Allergy (Verified 09/13/23 13:13) HPI Comments Details: Marilee is back in my office to discuss results of genicular nerve block. She reports only aggravation of the pain after the injection of the genicular nerves on the left. She reports that because of the aggravation of the pain in the knee she was not able to engage herself in physical therapy. She reports that her pain is very severe and she is unable to perform any vigorous movements with the left knee. With diagnosis of Complex regional pain syndrome of the left lower extremity I will schedule her for lumbar sympathetic block on the left . The patient was explained risks and benefits of the procedure. I will also prescribe her Ativan 1 mg p.o. once before the procedure to reduce anxiety on the procedure. Prior column very pleasant 37 years old Turkmen-speaking female who presents in my office with complains on pain on medial surface of the left knee. She reported that this pain started in November of the last year. 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 She is WC patient. She reports that her pain is most severe when she is bending her leg and when she is putting pressure on her foot. However laying down makes her pain slightly better but still she has a pain in the leg at night which prevents her from good night's sleep. The cold applications at physical therapy and 10s unit applications were making her pain better. She tried gabapentin twice a week and it helps her to sleep however she was told not to take it every day. She is also taking Naprosyn when her pain is very severe. She went for physical therapy after trauma and physical therapy helped your pain little bit. She had x-ray and MRI of the left knee and those images are completely normal. She does not have any past medical history, her past surgical history significant for cervical cancer and . 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 Review of Systems Const All systems reviewed & are unremarkable except as noted in HPI and below ENT Reports Normal hearing present Neuro Reports Normal hearing present, Denies Abnormal speech present, Denies confusion and Denies Sensory deficit (Neuro) Psych Denies confusion Physical Exam Const General: No confusion Orientation/consciousness: No confusion HEENT Head: Yes normal to inspection, Yes normocephalic and Yes atraumatic Resp Effort & Inspection: normal respiratory effort, able to speak in complete sentences, normal respiratory pattern, no audible wheezes and no cough Cardio Jugular venous distension: no JVD GI Inspection: Yes normal to inspection Skin Lesions: no lesions Rashes: no rashes Neuro General: No confusion Cranial nerves: Yes Normal hearing present Speech: No Abnormal speech present Sensory Exam: No Sensory deficit (Neuro) Extrem Other: Left knee: On the inspection the left thigh above the knee is slightly smaller compared to the right knee. The pinkish minimal discoloration is detected at the level of the knee. Range of motion is limited due to pain. Passive range of motion although painful seem to be preserved. Allodynia and hyperesthesia on the medial surface of the left knee. Results Reviewed Results Reviewed: Xrays were obtained in the office of the left knee are negative for acute or chronic abnormalities. Assessment & Plan Assessment & Plan (1) Complex regional pain syndrome i of left lower limb: Code(s): G90.522 - Complex regional pain syndrome I of left lower limb Category: Medical Plan She will continue gabapentin 300 mg q.h.s.. I will prescribe her Ativan 1 mg p.o. 30 minutes before the procedure. The procedure will be left-sided lumbar sympathetic nerve block. She reports severe pain in the knee however the images failed to demonstrate any chronic or acute changes in the knee. Presumption of the Complex regional pain syndrome of the left lower extremity was made. With the good results of sympathetic blockade I will be able to refer her again to physical therapy. The follow-up will be scheduled in 1 week after the injection. Medications: New lorazepam (Ativan) Please take 1 hour before the procedure. 1 mg PO DAILY 1 day PRN 1 tab 0RF anxiety Patient Instructions: I here by testify that I spent 32 minutes in conversation with this patient as well as planning her care and organizing this note. 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 Coding Level of Care Code Est Pt Level 4 (60738) Diagnoses Complex regional pain syndrome i of left lower limb G90.522
[2023-09-13 13:13] VITALS: BP 120/68; PULSE 91; RESP 16; O2SAT 98; BMI 28.7
== END 2023-09-13 13:12 | disposition home or self-care (01) ==
PROVIDERS: PCP Internal Medicine Infectious Disease; Visit Provider Anesthesiology
DX: G90.522 Complex regional pain syndrome I of left lower limb (principal)
CPT/HCPCS: 99214

== ENCOUNTER → 2023-09-13 12:43 | Outpatient (BNVA) | payer OTHER, SELFPAY | PROVIDERS: PCP Internal Medicine Infectious Disease; Visit Provider Anesthesiology | DX: G90.522 Complex regional pain syndrome I of left lower limb (principal) | CPT/HCPCS: 99212 ==

== ENCOUNTER 2023-12-07 06:17 | Outpatient (REF) | payer OTHER, SELFPAY | END 2023-12-07 06:18 | disposition home or self-care (01) | LOC: CF 06:17 | PROVIDERS: Visit Provider Anesthesiology | DX: Z13.89 Encounter for screening for other disorder (principal) ==